=== PATIENT | male | born 1970 | race Caucasian/White ===

== ENCOUNTER 2020-02-08 15:38 | Inpatient (IN) ==
[2020-02-08] MEDS ORDERED: Silver Sulfadiazine 50 GM TUBE TP PRN (20:00)
[2020-02-08] MEDS ORDERED: *HR* Dextrose 50 % in Water (Vial) 50 ML VIAL IVP PRN (20:17)
[2020-02-08] MEDS ORDERED: Dextrose Gel 15 GM/37.5 ML TUBE PO PRN ×2 (20:17)
[2020-02-08] MEDS ORDERED: D5% in Water 1,000 ML IVC PRN (20:17)
[2020-02-08] MEDS: Linezolid 600 MG TABLET PO SCH (22:03)
[2020-02-08] MEDS: Gentamicin Oint 15 GM TUBE TP SCH (22:03)
[2020-02-08] MEDS: Bumetanide 1 MG TABLET PO SCH (22:03)
[2020-02-09] MEDS: Linezolid 600 MG TABLET PO SCH (09:14)
[2020-02-09] MEDS: Loratadine 10 MG TABLET PO SCH (09:15)
[2020-02-09] MEDS: Cholecalciferol (D-3) 1,000 UNIT (25MCG) TABLET PO SCH (09:15)
[2020-02-09] MEDS: Silvasorb 44.4 ML TUBE TP SCH (09:18)
[2020-02-09] MEDS: Gentamicin Oint 15 GM TUBE TP SCH ×3 (09:18→21:06)
[2020-02-09] MEDS: Piperacillin/Tazobactam 3.375 GM in 0.9 % Sodium Chloride Mini Bag 100 ML IVPB SCH ×2 (17:49→23:49)
[2020-02-09] MEDS: Bumetanide 1 MG TABLET PO SCH (21:04)
[2020-02-10 06:22] LABS: Hematocrit 34.5 % (37.5-50.1); Hemoglobin 10.4 g/dL (12.9-16.9); Mean Corpuscular HGB Conc 30.1 g/dL (31.6-35.5); Mean Corpuscular Hemoglobin 24.1 pg (28.0-33.3); Mean Corpuscular Volume 79.9 fL (83.0-100.0); Mean Platelet Volume 9.9 fL (9.4-12.4); Platelet Count 506 K/mcL (140-400); Red Blood Count 4.32 M/mcL (4.19-5.50); Red Cell Distribution Width 21.2 % (11.5-14.5); White Blood Count 10.2 K/mcL (4.3-11.1)
[2020-02-10 06:39] LABS: BUN/Creatinine Ratio 18 (6-26); Blood Urea Nitrogen 20 mg/dL (6-20); Calcium 9.3 mg/dL (8.6-10.3); Carbon Dioxide 27 mEq/L (23-29); Chloride 100 mEq/L (98-107); Glucose 118 mg/dL (70-105); Osmolality,Calculated 290 (280-300); Potassium 3.7 mEq/L (3.5-5.1); Sodium 138 mEq/L (136-145); eGFR For African Americans > 60 (> 60); eGFR For Non-African Americans > 60 (> 60)
[2020-02-10] MEDS: Cholecalciferol (D-3) 1,000 UNIT (25MCG) TABLET PO SCH (09:38)
[2020-02-10] MEDS: Loratadine 10 MG TABLET PO SCH (09:38)
[2020-02-10] MEDS: Piperacillin/Tazobactam 3.375 GM in 0.9 % Sodium Chloride Mini Bag 100 ML IVPB SCH ×3 (09:39→23:38)
[2020-02-10] MEDS: Silvasorb 44.4 ML TUBE TP SCH (09:45)
[2020-02-10] MEDS: Gentamicin Oint 15 GM TUBE TP SCH ×3 (09:46→20:17)
[2020-02-10] MEDS ORDERED: Piperacillin/Tazobactam 3.375 GM in 0.9 % Sodium Chloride Mini Bag 100 ML IVPB SCH (16:33)
[2020-02-10] MEDS: Bumetanide 1 MG TABLET PO SCH (20:16)
[2020-02-11] MEDS: Loratadine 10 MG TABLET PO SCH (09:44)
[2020-02-11] MEDS: Cholecalciferol (D-3) 1,000 UNIT (25MCG) TABLET PO SCH (09:45)
[2020-02-11] MEDS: Gentamicin Oint 15 GM TUBE TP SCH ×3 (09:46→20:09)
[2020-02-11] MEDS: Silvasorb 44.4 ML TUBE TP SCH (09:47)
[2020-02-11] MEDS: Piperacillin/Tazobactam 3.375 GM in 0.9 % Sodium Chloride Mini Bag 100 ML IVPB SCH ×3 (09:47→23:27)
[2020-02-11] MEDS: Bumetanide 1 MG TABLET PO SCH (20:08)
[2020-02-12] MEDS: Loratadine 10 MG TABLET PO SCH (08:27)
[2020-02-12] MEDS: Piperacillin/Tazobactam 3.375 GM in 0.9 % Sodium Chloride Mini Bag 100 ML IVPB SCH ×3 (08:28→23:42)
[2020-02-12] MEDS: Cholecalciferol (D-3) 1,000 UNIT (25MCG) TABLET PO SCH (08:28)
[2020-02-12] MEDS: Silvasorb 44.4 ML TUBE TP SCH (08:29)
[2020-02-12] MEDS: Gentamicin Oint 15 GM TUBE TP SCH ×3 (08:29→19:51)
[2020-02-12] MEDS ORDERED: Lactulose Oral Soln 20 GM/30 ML UDC PO PRN (14:01)
[2020-02-12] MEDS ORDERED: Bisacodyl 10 MG RECTAL SUPPOSITORY RC PRN (14:01)
[2020-02-12] MEDS: Sennosides/Docusate Sodium TABLET PO SCH ×2 (17:46→19:50)
[2020-02-12] MEDS: polyethylene glycoL 3350 17 GM POWD.PACK PO SCH (17:47)
[2020-02-12] MEDS: Bumetanide 1 MG TABLET PO SCH (19:50)
[2020-02-13] MEDS: Piperacillin/Tazobactam 3.375 GM in 0.9 % Sodium Chloride Mini Bag 100 ML IVPB SCH ×2 (08:29→16:33)
[2020-02-13] MEDS: polyethylene glycoL 3350 17 GM POWD.PACK PO SCH (08:29)
[2020-02-13] MEDS: Cholecalciferol (D-3) 1,000 UNIT (25MCG) TABLET PO SCH (08:30)
[2020-02-13] MEDS: Loratadine 10 MG TABLET PO SCH (08:30)
[2020-02-13] MEDS: Sennosides/Docusate Sodium TABLET PO SCH ×2 (08:30→22:05)
[2020-02-13 08:48] LABS: Basophils # 0.1 K/mcL (0.0-0.2); Eosinophils # 0.2 K/mcL (0.0-0.6); Eosinophils % 2.5 %; Hematocrit 34.9 % (37.5-50.1); Hemoglobin 10.7 g/dL (12.9-16.9); Immature Granulocytes % 0.4 % (0-4); Lymphocytes # 1.5 K/mcL (0.6-4.6); Lymphocytes % 18.3 %; Mean Corpuscular HGB Conc 30.7 g/dL (31.6-35.5); Mean Corpuscular Hemoglobin 24.5 pg (28.0-33.3); Mean Corpuscular Volume 79.9 fL (83.0-100.0); Monocytes # 0.5 K/mcL (0.0-1.3); Platelet Count 512 K/mcL (140-400); Red Blood Count 4.37 M/mcL (4.19-5.50); Red Cell Distribution Width 21.8 % (11.5-14.5); Segmented Neutrophils % 71.8 %; White Blood Count 8.3 K/mcL (4.3-11.1)
[2020-02-13 09:18] LABS: Alanine Aminotransferase 61 Units/L (7-52); Albumin 3.7 g/dL (3.5-5.7); Albumin/Globulin Ratio 0.8 (1.1-2.2); Alkaline Phosphatase 65 Units/L (34-104); Aspartate Amino Transferase 36 Units/L (13-39); BUN/Creatinine Ratio 14 (6-26); Bilirubin,Total 0.4 mg/dL (0.3-1.0); Blood Urea Nitrogen 13 mg/dL (6-20); Calcium 9.4 mg/dL (8.6-10.3); Carbon Dioxide 27 mEq/L (23-29); Chloride 101 mEq/L (98-107); Globulin 4.6 g/dL (2.4-3.5); Glucose 108 mg/dL (70-105); Osmolality,Calculated 287 (280-300); Potassium 3.3 mEq/L (3.5-5.1); Sodium 138 mEq/L (136-145); Total Protein 8.3 g/dL (6.4-8.9); eGFR For African Americans > 60 (> 60); eGFR For Non-African Americans > 60 (> 60)
[2020-02-13] MEDS: Silvasorb 44.4 ML TUBE TP SCH (13:47)
[2020-02-13] MEDS: Gentamicin Oint 15 GM TUBE TP SCH ×3 (13:47→22:43)
[2020-02-13] MEDS: Bumetanide 1 MG TABLET PO SCH (22:05)
[2020-02-14] MEDS: Piperacillin/Tazobactam 3.375 GM in 0.9 % Sodium Chloride Mini Bag 100 ML IVPB SCH ×4 (00:07→22:28)
[2020-02-14] MEDS: Cholecalciferol (D-3) 1,000 UNIT (25MCG) TABLET PO SCH (08:59)
[2020-02-14] MEDS: polyethylene glycoL 3350 17 GM POWD.PACK PO SCH (08:59)
[2020-02-14] MEDS: Sennosides/Docusate Sodium TABLET PO SCH ×2 (08:59→22:28)
[2020-02-14] MEDS: Loratadine 10 MG TABLET PO SCH (09:00)
[2020-02-14] MEDS: Gentamicin Oint 15 GM TUBE TP SCH ×3 (09:10→22:05)
[2020-02-14] MEDS: Silvasorb 44.4 ML TUBE TP SCH (11:01)
[2020-02-14] MEDS: Bumetanide 1 MG TABLET PO SCH (22:28)
[2020-02-15] MEDS: Piperacillin/Tazobactam 3.375 GM in 0.9 % Sodium Chloride Mini Bag 100 ML IVPB SCH ×3 (08:57→21:26)
[2020-02-15] MEDS: Loratadine 10 MG TABLET PO SCH (09:00)
[2020-02-15] MEDS: Sennosides/Docusate Sodium TABLET PO SCH ×2 (09:00→20:50)
[2020-02-15] MEDS: Cholecalciferol (D-3) 1,000 UNIT (25MCG) TABLET PO SCH (09:00)
[2020-02-15] MEDS: polyethylene glycoL 3350 17 GM POWD.PACK PO SCH (09:01)
[2020-02-15] MEDS: Gentamicin Oint 15 GM TUBE TP SCH ×2 (09:04→16:56)
[2020-02-15] MEDS: Silvasorb 44.4 ML TUBE TP SCH (09:04)
[2020-02-15] MEDS: Bumetanide 1 MG TABLET PO SCH (20:50)
[2020-02-16] MEDS: Piperacillin/Tazobactam 3.375 GM in 0.9 % Sodium Chloride Mini Bag 100 ML IVPB SCH ×3 (00:12→17:25)
[2020-02-16] MEDS: Gentamicin Oint 15 GM TUBE TP SCH ×4 (05:00→21:39)
[2020-02-16] MEDS: Loratadine 10 MG TABLET PO SCH (08:08)
[2020-02-16] MEDS: Sennosides/Docusate Sodium TABLET PO SCH ×2 (08:12→21:38)
[2020-02-16] MEDS: Cholecalciferol (D-3) 1,000 UNIT (25MCG) TABLET PO SCH (08:12)
[2020-02-16] MEDS: polyethylene glycoL 3350 17 GM POWD.PACK PO SCH (08:13)
[2020-02-16] MEDS: Silvasorb 44.4 ML TUBE TP SCH (08:13)
[2020-02-16] MEDS: Bumetanide 1 MG TABLET PO SCH (21:38)
[2020-02-17] MEDS: Piperacillin/Tazobactam 3.375 GM in 0.9 % Sodium Chloride Mini Bag 100 ML IVPB SCH ×3 (02:06→21:16)
[2020-02-17] MEDS: Cholecalciferol (D-3) 1,000 UNIT (25MCG) TABLET PO SCH (09:33)
[2020-02-17] MEDS: Loratadine 10 MG TABLET PO SCH (09:34)
[2020-02-17] MEDS: polyethylene glycoL 3350 17 GM POWD.PACK PO SCH (09:34)
[2020-02-17] MEDS: Sennosides/Docusate Sodium TABLET PO SCH ×2 (09:34→21:15)
[2020-02-17] MEDS: Silvasorb 44.4 ML TUBE TP SCH (09:35)
[2020-02-17] MEDS: Gentamicin Oint 15 GM TUBE TP SCH ×3 (09:35→21:14)
[2020-02-17] MEDS: Bumetanide 1 MG TABLET PO SCH (21:15)
[2020-02-18] MEDS: Piperacillin/Tazobactam 3.375 GM in 0.9 % Sodium Chloride Mini Bag 100 ML IVPB SCH ×3 (05:40→22:55)
[2020-02-18] MEDS: Loratadine 10 MG TABLET PO SCH (08:04)
[2020-02-18] MEDS: Sennosides/Docusate Sodium TABLET PO SCH ×2 (08:04→22:44)
[2020-02-18] MEDS: Cholecalciferol (D-3) 1,000 UNIT (25MCG) TABLET PO SCH (08:04)
[2020-02-18] MEDS: Gentamicin Oint 15 GM TUBE TP SCH ×3 (08:05→22:46)
[2020-02-18] MEDS: polyethylene glycoL 3350 17 GM POWD.PACK PO SCH (08:05)
[2020-02-18] MEDS: Silvasorb 44.4 ML TUBE TP SCH (08:06)
[2020-02-18] MEDS: Bumetanide 1 MG TABLET PO SCH (22:44)
[2020-02-19] MEDS: Piperacillin/Tazobactam 3.375 GM in 0.9 % Sodium Chloride Mini Bag 100 ML IVPB SCH ×3 (06:27→21:51)
[2020-02-19] MEDS: polyethylene glycoL 3350 17 GM POWD.PACK PO SCH (08:03)
[2020-02-19] MEDS: Cholecalciferol (D-3) 1,000 UNIT (25MCG) TABLET PO SCH (08:04)
[2020-02-19] MEDS: Loratadine 10 MG TABLET PO SCH (08:04)
[2020-02-19] MEDS: Sennosides/Docusate Sodium TABLET PO SCH ×2 (08:04→21:05)
[2020-02-19] MEDS: Silvasorb 44.4 ML TUBE TP SCH (08:06)
[2020-02-19] MEDS: Gentamicin Oint 15 GM TUBE TP SCH ×3 (08:06→21:05)
[2020-02-19] MEDS: Bumetanide 1 MG TABLET PO SCH (21:05)
[2020-02-20] MEDS: Gentamicin Oint 15 GM TUBE TP SCH (05:31)
[2020-02-20] MEDS: Silvasorb 44.4 ML TUBE TP SCH (05:32)
[2020-02-20] MEDS: Piperacillin/Tazobactam 3.375 GM in 0.9 % Sodium Chloride Mini Bag 100 ML IVPB SCH ×2 (06:00→11:30)
[2020-02-20 07:25] VITALS: BP 104/60
[2020-02-20] MEDS: Sennosides/Docusate Sodium TABLET PO SCH (08:33)
[2020-02-20] MEDS: Cholecalciferol (D-3) 1,000 UNIT (25MCG) TABLET PO SCH (08:33)
[2020-02-20] MEDS: Loratadine 10 MG TABLET PO SCH (08:34)
[2020-02-20] MEDS: polyethylene glycoL 3350 17 GM POWD.PACK PO SCH (08:35)
== END 2020-02-20 15:25 | disposition home health service (06) | DRG 603 ==
LOC: INPPIK 19:20
PROVIDERS: ADMIT Family Medicine; ATTEND Family Medicine